=== PATIENT | male | born 1930 | race Caucasian/White ===

== ENCOUNTER 2021-03-27 06:42 | Day surgery (SDC) | payer MEDICARE, BC ==
[~2021-03-27] VITALS: Ht 185.4 cm; Wt 100.4 kg
[2021-03-27 07:37] VITALS: BP 135/92
[2021-03-27] MEDS ORDERED: ceFAZolin 2gm in dextrose, iso 50 ML IV ONE (07:55)
[2021-03-27] MEDS ORDERED: VANCOMYCIN 1,500MG in NS 500ml IVPB IV ONE (07:55)
[2021-03-27] MEDS ORDERED: VANCOMYCIN 1,500MG inj. 1,500 MG in normal saline 250ml IV soln 300 ML IV ONE (07:58)
[2021-03-27 08:02] LABS: BASOPHILS # (AUTO) 0.1 X10'3 (0-0.2); BASOPHILS % (AUTO) 1.1 % (0-1); EOSINOPHILS # (AUTO) 0.3 X10'3 (0-0.9); EOSINOPHILS % (AUTO) 4.1 % (0-6); HEMATOCRIT 36.1 % (42.0-52.0); HEMOGLOBIN 12.3 g/dl (14.0-17.9); LYMPHOCYTES # (AUTO) 0.9 X10'3 (1.1-4.8); MEAN CORPUSCULAR HEMOGLOBIN 32.6 PG (27.0-31.0); MEAN PLATELET VOLUME 8.1 FL (7.4-10.4); MONOCYTES # (AUTO) 0.8 X10'3 (0-0.9); MONOCYTES % (AUTO) 12.7 % (2-12); NEUTROPHILS # (AUTO) 4.2 X10'3 (1.8-7.7); NEUTROPHILS % (AUTO) 67.1 % (42-75); PLATELET COUNT 247 X10'3 (140-440); RED BLOOD COUNT 3.76 X10'6 (4.70-6.10); RED CELL DISTRIBUTION WIDTH 14.2 % (11.5-14.5); WHITE BLOOD COUNT 6.3 X10'3 (4.5-11.0)
[2021-03-27 08:28] LABS: ALBUMIN 3.7 G/DL (3.4-5.0); ANION GAP 11 (8-16); BLOOD UREA NITROGEN 35 MG/DL (7-18); BUN/CREATININE RATIO 17.3 (5.4-32.0); CALCIUM 9.2 MG/DL (8.5-10.1); CHLORIDE 104 MMOL/L (99-107); CREATININE 2.02 MG/DL (0.60-1.10); GLUCOSE 98 MG/DL (70-104); MAGNESIUM 2.2 MG/DL (1.5-2.4); POTASSIUM 4.6 MMOL/L (3.5-5.1); SODIUM 140 MMOL/L (135-145); TOTAL CARBON DIOXIDE 24.6 MMOL/L (24-32); eGFR 31 ML/MIN
[2021-03-27] MEDS ORDERED: LOVA20TA2 PO (08:56)
[2021-03-27] MEDS ORDERED: APIX5TAB3 PO (08:56)
[2021-03-27] MEDS ORDERED: LAN0.125T PO (08:56)
[2021-03-27] MEDS ORDERED: ALBU8.5H17 IH (08:56)
[2021-03-27] MEDS ORDERED: HYDR-4069 PO (08:56)
[2021-03-27] MEDS ORDERED: AMIO200T62 PO (08:56)
[2021-03-27] MEDS ORDERED: BUDE10.2 INH (08:56)
[2021-03-27] MEDS ORDERED: FURO-150 PO (08:56)
[2021-03-27] MEDS ORDERED: UMEC62.5 (08:56)
[2021-03-27] MEDS ORDERED: GUAI600T45 PO (08:56)
[2021-03-27] MEDS ORDERED: MULT-1085 PO (08:56)
[2021-03-27] MEDS ORDERED: ISOS60TA71 PO (08:56)
[2021-03-27] MEDS ORDERED: midazolam 1 mg/ML 2ml injection ONE ×2 (09:00→09:58)
[2021-03-27] MEDS ORDERED: vancomycin 1,000mg inj ONE (09:01)
[2021-03-27] MEDS ORDERED: LIDOcaine 1% w/EPI 1:100,000 30ml vial (MDV) ONE (09:01)
[2021-03-27] MEDS ORDERED: fentaNYL/PF 50MCG/1 ML 2ML syringe ONE (09:01)
[2021-03-27 10:40] VITALS: BP 127/62
[2021-03-27 10:55] VITALS: BP 116/64
[2021-03-27 11:10] VITALS: BP 120/61
[2021-03-27] MEDS ORDERED: normal saline 1000ml 1,000 ML IV SCH (11:15)
[2021-03-27 11:26] VITALS: BP 107/50
[2021-03-27 11:40] VITALS: BP 106/48
== END 2021-03-27 12:00 | disposition home or self-care (01) ==
LOC: SSTAY O 06:42 → EDSEX 06:42 → SSTAY O 12:00
PROVIDERS: ATTEND Internal Medicine Cardiovascular Disease
DX: T82.110A Breakdown (mechanical) of cardiac electrode, initial encounter (principal); I42.0 Dilated cardiomyopathy; I48.0 Paroxysmal atrial fibrillation; E78.5 Hyperlipidemia, unspecified; I08.0 Rheumatic disorders of both mitral and aortic valves; I44.7 Left bundle-branch block, unspecified; I10 Essential (primary) hypertension; J43.9 Emphysema, unspecified; Z79.01 Long term (current) use of anticoagulants; Z79.899 Other long term (current) drug therapy; Z85.46 Personal history of malignant neoplasm of prostate; Z98.49 Cataract extraction status, unspecified eye; Z96.659 Presence of unspecified artificial knee joint; Z88.8 Allergy status to other drugs, medicaments and biological substances; Z87.891 Personal history of nicotine dependence; Z72.89 Other problems related to lifestyle; Z82.49 Family history of ischemic heart disease and other diseases of the circulatory system; Z80.9 Family history of malignant neoplasm, unspecified; Y83.8 Other surgical procedures as the cause of abnormal reaction of the patient, or of later complication, without mention of misadventure at the time of the procedure; Y92.89 Other specified places as the place of occurrence of the external cause
CPT/HCPCS: 33223; 36415; 80048; 83735; 85025; 85610; 93005; 99152; 99153; C1894; J2250; J3010; J3370; 33218; A6258

== ENCOUNTER 2021-09-11 09:06 | Day surgery (SDC) | payer MEDICARE, BC ==
[~2021-09-11] VITALS: Ht 182.9 cm; Wt 97.7 kg
[2021-09-11] VITALS (10 sets, daily range): BP systolic 116–143; BP diastolic 64–89
[~2021-09-11 09:06] MED LIST: ALBU8.5H17 IH; AMIO200T62 PO; APIX5TAB3 PO; BUDE10.2 INH; FURO-150 PO; GUAI600T45 PO; HYDR-4069 PO; ISOS60TA71 PO; LAN0.125T PO; LOVA20TA2 PO; MULT-1085 PO; UMEC62.5
[2021-09-11] MEDS ORDERED: vancomycin/NS 1 GM ADD-VANTAGE 250 ML IV ONE (09:30)
[2021-09-11] MEDS ORDERED: cefazolin/dext.iso 2gm/100ml 100 ML IV ONE (09:30)
[2021-09-11] MEDS ORDERED: UMEC62.5 (09:46)
[2021-09-11] MEDS ORDERED: LINE600T14 PO (09:46)
[2021-09-11] MEDS ORDERED: VANCOMYCIN IV ONE (10:10)
[2021-09-11] MEDS ORDERED: NORMAL SALINE IV ONE (10:10)
[2021-09-11 10:19] LABS: BASOPHILS # (AUTO) 0.1 X10'3 (0-0.2); BASOPHILS % (AUTO) 0.9 % (0-1); EOSINOPHILS # (AUTO) 0.1 X10'3 (0-0.9); HEMATOCRIT 32.8 % (42.0-52.0); HEMOGLOBIN 10.9 g/dl (14.0-17.9); LYMPHOCYTES # (AUTO) 0.6 X10'3 (1.1-4.8); LYMPHOCYTES % (AUTO) 8.7 % (21-51); MEAN CORPUSCULAR HEMOGLOBIN 30.8 PG (27.0-31.0); MEAN CORPUSCULAR HGB CONC 33.2 g/dL (33.0-36.5); MEAN CORPUSCULAR VOLUME 92.8 FL (78-98); MEAN PLATELET VOLUME 7.5 FL (7.4-10.4); MONOCYTES # (AUTO) 0.5 X10'3 (0-0.9); MONOCYTES % (AUTO) 6.5 % (2-12); NEUTROPHILS # (AUTO) 5.8 X10'3 (1.8-7.7); NEUTROPHILS % (AUTO) 82.9 % (42-75); PLATELET COUNT 337 X10'3 (140-440); RED BLOOD COUNT 3.54 X10'6 (4.70-6.10); RED CELL DISTRIBUTION WIDTH 14.4 % (11.5-14.5)
[2021-09-11 10:31] LABS: ALBUMIN 3.2 G/DL (3.4-5.0); ANION GAP 8 (8-16); BLOOD UREA NITROGEN 20 MG/DL (7-18); BUN/CREATININE RATIO 16.7 (5.4-32.0); CALCIUM 8.8 MG/DL (8.5-10.1); CHLORIDE 102 MMOL/L (99-107); GLUCOSE 96 MG/DL (70-104); MAGNESIUM 1.8 MG/DL (1.5-2.4); POTASSIUM 4.6 MMOL/L (3.5-5.1); SODIUM 135 MMOL/L (135-145); TOTAL CARBON DIOXIDE 25.5 MMOL/L (24-32); eGFR 57 ML/MIN
[2021-09-11] MEDS ORDERED: fentaNYL/PF 50MCG/1 ML 2ML syringe ONE (10:50)
[2021-09-11] MEDS ORDERED: midazolam 1 mg/ML 2ml injection ONE ×3 (10:50→12:08)
[2021-09-11] MEDS ORDERED: vancomycin 1,000mg inj ONE (10:50)
[2021-09-11] MEDS ORDERED: LIDOCAINE 2% w/EPI 1:100:000 30mL injection MDV**cath lab 1 only ONE (10:50)
--- NOTE | 2021-09-11 13:15 | NUR ---
Pt sitting up in bed eating sandwich and drinking water without problems.
--- NOTE | 2021-09-11 14:40 | NUR ---
PIV DC cath intact. RN assisted pt to get dressed. Waiting for son to go over DC instructions.
--- NOTE | 2021-09-11 15:05 | NUR ---
Written and Verbal DC instructions given to pt and son, verbalize understanding. Son given copy of prescription and informed that prescription faxed to [facility] [place] [facility]. DC to home transferred to private car via pt able to transfer self to car, steady on feet.
== END 2021-09-11 15:05 | disposition home or self-care (01) ==
LOC: SSTAY O 09:06
PROVIDERS: ATTEND Internal Medicine Cardiovascular Disease
DX: T82.897A Other specified complication of cardiac prosthetic devices, implants and grafts, initial encounter (principal); I42.0 Dilated cardiomyopathy; I10 Essential (primary) hypertension; E78.00 Pure hypercholesterolemia, unspecified; I44.7 Left bundle-branch block, unspecified; J43.9 Emphysema, unspecified; I48.0 Paroxysmal atrial fibrillation; E78.5 Hyperlipidemia, unspecified; I08.0 Rheumatic disorders of both mitral and aortic valves; Z85.46 Personal history of malignant neoplasm of prostate; Z98.41 Cataract extraction status, right eye; Z98.42 Cataract extraction status, left eye; Z98.890 Other specified postprocedural states; Z79.899 Other long term (current) drug therapy; Z79.01 Long term (current) use of anticoagulants; Z87.891 Personal history of nicotine dependence; Z72.89 Other problems related to lifestyle; Z88.1 Allergy status to other antibiotic agents; Z88.8 Allergy status to other drugs, medicaments and biological substances; Z88.2 Allergy status to sulfonamides; Y83.8 Other surgical procedures as the cause of abnormal reaction of the patient, or of later complication, without mention of misadventure at the time of the procedure; Y92.89 Other specified places as the place of occurrence of the external cause
CPT/HCPCS: 33223; 36415; 80048; 83735; 85025; 85610; 93005; 99152; 99153; J2250; J3010; J3370; J3490; J7030; 33222; A4620; A6258

== ENCOUNTER 2021-11-27 09:17 | Day surgery (SDC) | payer MEDICARE, BC ==
[~2021-11-27] VITALS: Ht 182.9 cm; Wt 92.0 kg
[2021-11-27] VITALS (9 sets, daily range): BP systolic 120–143; BP diastolic 52–77
[~2021-11-27 09:17] MED LIST changes: +LINE600T14 PO
[2021-11-27] MEDS ORDERED: vancomycin 1,500 MG in NS 300ml IV soln IV ONE (09:51)
[2021-11-27] MEDS ORDERED: ceFAZolin inj. 2,000 MG in dextrose 5%-water 100 ML IV ONE (09:51)
[2021-11-27 10:07] LABS: BASOPHILS # (AUTO) 0.1 X10'3 (0-0.2); BASOPHILS % (AUTO) 0.8 % (0-1); EOSINOPHILS # (AUTO) 0.3 X10'3 (0-0.9); EOSINOPHILS % (AUTO) 4.5 % (0-6); HEMATOCRIT 32.3 % (42.0-52.0); HEMOGLOBIN 11.2 g/dl (14.0-17.9); LYMPHOCYTES # (AUTO) 1.4 X10'3 (1.1-4.8); MEAN CORPUSCULAR HEMOGLOBIN 32.8 PG (27.0-31.0); MEAN CORPUSCULAR HGB CONC 34.7 g/dL (33.0-36.5); MEAN CORPUSCULAR VOLUME 94.6 FL (78-98); MONOCYTES # (AUTO) 0.8 X10'3 (0-0.9); MONOCYTES % (AUTO) 11.2 % (2-12); NEUTROPHILS # (AUTO) 4.7 X10'3 (1.8-7.7); NEUTROPHILS % (AUTO) 64.5 % (42-75); PLATELET COUNT 290 X10'3 (140-440); RED BLOOD COUNT 3.42 X10'6 (4.70-6.10); RED CELL DISTRIBUTION WIDTH 16.6 % (11.5-14.5); WHITE BLOOD COUNT 7.2 X10'3 (4.5-11.0)
[2021-11-27] MEDS ORDERED: DOXY-411 PO (10:12)
[2021-11-27 10:15] LABS: ALBUMIN 3.4 G/DL (3.4-5.0); ANION GAP 7 (8-16); BLOOD UREA NITROGEN 30 MG/DL (7-18); BUN/CREATININE RATIO 23.3 (5.4-32.0); CALCIUM 9.3 MG/DL (8.5-10.1); CHLORIDE 102 MMOL/L (99-107); CREATININE 1.29 MG/DL (0.60-1.10); GLUCOSE 95 MG/DL (70-104); MAGNESIUM 1.8 MG/DL (1.5-2.4); POTASSIUM 4.5 MMOL/L (3.5-5.1); SODIUM 138 MMOL/L (135-145); TOTAL CARBON DIOXIDE 28.6 MMOL/L (24-32); eGFR 52 ML/MIN
[2021-11-27] MEDS ORDERED: midazolam 1 mg/ML 2ml injection ONE ×3 (12:41→13:41)
[2021-11-27] MEDS ORDERED: vancomycin 1,000mg inj ONE (12:41)
[2021-11-27] MEDS ORDERED: fentaNYL/PF 50MCG/1 ML 2ML syringe ONE (12:41)
[2021-11-27] MEDS ORDERED: LIDOCAINE 2% w/EPI 1:100:000 30mL injection MDV**cath lab 1 only ONE (12:41)
[2021-11-27] MEDS ORDERED: normal saline 1000ml 1,000 ML IV SCH (14:42)
== END 2021-11-27 17:08 | disposition home or self-care (01) ==
LOC: SSTAY O 09:17
PROVIDERS: ATTEND Internal Medicine Cardiovascular Disease
DX: Z45.02 Encounter for adjustment and management of automatic implantable cardiac defibrillator (principal); I42.8 Other cardiomyopathies; I35.0 Nonrheumatic aortic (valve) stenosis; I10 Essential (primary) hypertension; I48.0 Paroxysmal atrial fibrillation; E78.5 Hyperlipidemia, unspecified; J44.9 Chronic obstructive pulmonary disease, unspecified; Z79.899 Other long term (current) drug therapy; Z98.890 Other specified postprocedural states; Z85.46 Personal history of malignant neoplasm of prostate; Z98.49 Cataract extraction status, unspecified eye; Z79.01 Long term (current) use of anticoagulants; Z82.49 Family history of ischemic heart disease and other diseases of the circulatory system; Z88.8 Allergy status to other drugs, medicaments and biological substances
CPT/HCPCS: 33264; 36415; 80048; 83735; 85025; 85610; 93005; 99152; 99153; C1882; J0690; J2250; J3010; J3370; J3490; J7030; J7040; J7060; A4620; A6258

== ENCOUNTER 2022-03-27 08:41 | Day surgery (SDC) | payer MEDICARE, BC ==
[~2022-03-27 08:41] MED LIST changes: -BUDE10.2 INH; +DOXY-411 PO; -LINE600T14 PO
[2022-03-27 08:55] VITALS: BP 110/61
[2022-03-27] MEDS ORDERED: POTA-192 PO (09:21)
[2022-03-27] MEDS ORDERED: FENTANYL CITRATE/PF 50 MCG/1 ML VIAL ONE (09:24)
[2022-03-27] MEDS ORDERED: MIDAZolam 1 MG/ML 5ML VIAL ONE (09:24)
[2022-03-27] MEDS ORDERED: diphenhydrAMINE 50 mg/ml inj ONE (09:24)
[2022-03-27] MEDS ORDERED: LIDOcaine Viscous 15ml cup ONE (09:25)
[2022-03-27 09:45] VITALS: BP 93/50
[2022-03-27 09:55] VITALS: BP 93/51
[2022-03-27 10:05] VITALS: BP 95/55
== END 2022-03-27 10:25 | disposition home or self-care (01) ==
LOC: GI LAB 08:41
PROVIDERS: ATTEND Internal Medicine Gastroenterology
DX: K29.70 Gastritis, unspecified, without bleeding (principal); R13.10 Dysphagia, unspecified; K21.9 Gastro-esophageal reflux disease without esophagitis
CPT/HCPCS: 43239; J2250; J3010; J7030; Z7512; 88305; 99152; A4620; J1200